=== PATIENT | female | born 1980 | race Caucasian/White ===

== ENCOUNTER 2019-06-30 06:02 | Emergency (ER) | payer OTHER, SELFPAY ==
--- NOTE | ~2019-06-30 | US_ITS ---
EXAMINATION: US right upper quadrant DATE: 06/30/2019 07:44 INDICATION: Right upper quadrant pain TECHNIQUE: Multiple grayscale and Doppler ultrasound images of the abdomen were obtained. COMPARISON: None available FINDINGS: The head and and body of the pancreas are normal. The pancreatic tail is obscured by bowel gas. The liver is normal with normal echogenicity and echotexture. No surface nodularity. Normal hepa topetal flow in the main portal vein. The gallbladder is normal with no abnormal wall thickening, per icholecystic fluid or stones. The normal common bile duct measures 4 mm. There was no sonographic Mur phy sign. IMPRESSION: 1. Normal sonographic study of the gallbladder. Reviewed, dictated and finalized at location A.
--- NOTE | ~2019-06-30 | CT_ITS ---
EXAMINATION: CT abdomen pelvis w con INDICATION: Right upper quadrant pain and nausea TECHNIQUE: Computed tomographic images of the abdomen and pelvis were obtained after the administrati on of 100 cc of Omnipaque 350 intravenous contrast. The dose-length product (DLP) was 379.13 mGy-cm. Automated exposure control and iterative reconstruction technique were employed. COMPARISON: None available FINDINGS: Minimal dependent atelectasis is present in the lung bases. The heart size is normal. The l iver, spleen, pancreas, gallbladder, and adrenal glands are normal. The kidneys are unremarkable. No pathologically enlarged abdominal or pelvic lymph nodes are identified. There is no free intraperiton eal gas or evidence of bowel obstruction. There is a small fat-containing umbilical hernia. The appen xiomara measures up to 9 mm in some portions but is thin-walled and gas containing. The urinary bladder i s distended. IMPRESSION: 1. No CT correlate for the patient's symptoms. Reviewed, dictated and finalized at location A.
[2019-06-30 06:07] VITALS: BP 136/95; PULSE 72; RESP 17; TEMP 36.5; O2SAT 100
--- NOTE | 2019-06-30 06:09 | ED.ABDPAIN ---
HPI - Abdominal Pain General Chief Complaint: Abdominal Pain <Rene Anders MD - Last Filed: 06/30/19 06:47> Stated Complaint: Abdominal pain <Rene Anders MD - Last Filed: 06/30/19 06:47> Time Seen by Provider: 06/30/19 06:08 <Rene Anders MD - Last Filed: 06/30/19 06:47> History of Present Illness HPI narrative: Patient is a 38-year-old female who presents ER with right upper quadrant abdominal pain. Reports it is been intermittent over the last couple of days. Worse with eating. It is now radiating to her right back. Symptoms began an hour prior to arrival and awoke her from sleep. Mild nausea but no vomiting. Denies fevers or chills or sweats. Has never been evaluated for similar symptoms. She has not found any alleviating factors. <Rene Anders MD - Last Filed: 06/30/19 06:47> Related Data Home Medications: Home Medications Medication Instructions Recorded Confirmed escitalopram oxalate [Lexapro] 10 mg PO DAILY 02/17/19 02/17/19 <Rene Anders MD - Last Filed: 06/30/19 06:47> Allergies/Adverse Reactions: Allergies Allergy/AdvReac Type Severity Reaction Status Date / Time propoxyphene Allergy Unknown NAUSEA AND Verified 03/04/16 14:10 VOMITING DHA Allergy Mild RASH Uncoded 09/18/13 13:35 NUTS Allergy Unknown SWELLING Uncoded 08/05/09 08:09 <Rene Anders MD - Last Filed: 06/30/19 06:47> Review of Systems Review of Systems: All systems reviewed & are unremarkable except as noted in HPI and below <Rene Anders MD - Last Filed: 06/30/19 06:47> Constitutional: Constitutional: Denies chills, Denies fever(s) and Denies weakness <Rene Anders MD - Last Filed: 06/30/19 06:47> ENT: Denies nasal congestion and Denies sore throat <Rene Anders MD - Last Filed: 06/30/19 06:47> Cardiovascular: Cardiovascular: Denies chest pain and Denies rapid heart rate <Rene Anders MD - Last Filed: 06/30/19 06:47> Respiratory: Respiratory: Denies cough and Denies dyspnea <Rene Anders MD - Last Filed: 06/30/19 06:47> Gastrointestinal: Gastrointestinal: Reports abdominal pain, Denies diarrhea, Reports nausea and Denies vomiting <Rene Anders MD - Last Filed: 06/30/19 06:47> Genitourinary: Genitourinary: Denies nocturia and Denies dysuria <Rene Anders MD - Last Filed: 06/30/19 06:47> PMFSH Past Medical History Medical History: Medical History (Updated 06/30/19 @ 07:14 by Ana Magaña MD) Anxiety Non-Hodgkin lymphoma <Rene Anders MD - Last Filed: 06/30/19 06:47> Surgical History Surgical History: Surgical History (Updated 06/30/19 @ 06:47 by Rene Anders MD) History of removal of Port-a-Cath <Rene Anders MD - Last Filed: 06/30/19 06:47> Social History Social History: Social History Social History: used to smoke 1pack for 13years Smoking status: Former smoker Second hand tobacco smoke exposure: No Alcohol intake: never Gender identity (if verbalized by the patient): Female <Rene Anders MD - Last Filed: 06/30/19 06:47> Exam Narrative: Exam Narrative: GENERAL: Uncomfortable-appearing, well-nourished, and in no acute distress. HEAD: Normocephalic, atraumatic. ENT: Mucous membranes moist. CHEST: Clear to auscultation. No respiratory distress. HEART: Regular rate and rhythm. Normal peripheral pulses. ABDOMEN: Soft, moderate tenderness palpation right upper quadrant with guarding, positive Baeza's, nondistended, normal active bowel sounds. EXTREMITIES: Normal range of motion. No edema. SKIN: Warm, dry, no rash. NEURO: Alert and oriented x3. <Rene Anders MD - Last Filed: 06/30/19 06:47> Course Reevaluation(s) Reevaluation #1: Assumed care at 7:13 AM. Ms. Mondragon is an 9 out of 10 pain, right upper quadrant, for 5 days now. No known gallbladder disease. She arzola
[2019-06-30 06:30] LABS: Basophils Absolute Auto 0.1 K/mm3 (0.0-0.1); Basophils Percent Auto 0.6 % (0.2-1.2); Eosinophils Absolute Auto 0.3 K/mm3 (0-0.3); Eosinophils Percent Auto 2.7 % (0-4.4); Hematocrit 44.1 % (37.0-47.0); Immature Granulocyte Absolute 0.03 K/mm3 (0.00-0.031); Immature Granulocyte Percent A 0.3 % (0-0.5); Lymphocytes Absolute Auto 4.86 K/mm3 (0.9-3.2); Mean Corpuscular Hemoglobin 30.8 pg (26-34); Mean Corpuscular Volume 90.6 fl (80-100); Mean Platelet Volume 9.4 fl (7.4-10.4); Monocytes Absolute Auto 0.6 K/mm3 (0.1-0.6); Monocytes Percent Auto 5.6 % (2.6-8.5); Neutrophils Absolute Auto 4.7 K/mm3 (1.3-6.7); Neutrophils Percent Auto 44.8 % (45.5-73.1); Platelet Count Result 306 k/mm3 (150-375); Red Blood Count 4.87 M/mm3 (4.2-5.4); Red Cell Distribution Width 12.3 % (11.5-14.5); White Blood Count 10.6 K/mm3 (4.5-10.0)
[2019-06-30 06:35] LABS: Add Urine Microscopic? NO; Appearance Urine Clear (Clear); Bilirubin Urine Negative (Negative); Blood Urine Negative (Negative); Color Urine Straw (Yellow); Glucose Urine UA Negative (Negative); Ketones Urine Negative (Negative); Leukocyte Esterase Ur Negative LEU/UL (Negative); Nitrate Urine Negative (Negative); Protein Urine Negative (Negative); Specific Grav Ur 1.013 (1.001-1.035); Urobilinogen Urine Negative mg/dL (<2.0)
[2019-06-30 06:44] LABS: Alanine Aminotransferase 14 U/L (4-35); Albumin Level 3.8 g/dL (3.5-5.1); Alkaline Phosphatase 104 U/L (38-126); Aspartate Amino Transferase 20 U/L (14-36); Bilirubin,Total 0.2 mg/dL (0.2-1.3); Blood Urea Nitrogen 13 mg/dL (7-17); Calcium 8.4 mg/dL (8.4-10.2); Carbon Dioxide 23 mmol/L (22-30); Chloride 109 mmol/L (98-107); Estimated Glomerular Filt Rate > 60; Glucose 104 mg/dL (65-105); Lipase 94 U/L (23-300); Potassium 4.6 mmol/L (3.4-5.0); Sodium 138 mmol/L (137-145)
[2019-06-30 07:00] VITALS: BP 122/78; PULSE 72; RESP 16; O2SAT 99
[2019-06-30] MEDS: SODIUM CHLORIDE 0.9% IV 1,000 ML 999 ML IV CONT (07:28)
[2019-06-30] MEDS: MORPHINE SULFATE 4 MG/ML INJ IV PUSH ×2 (07:29→08:50)
[2019-06-30] MEDS: ONDANSETRON INJ 4 MG/2 ML VIAL IV PUSH (07:29)
[2019-06-30 08:00] VITALS: BP 125/80; PULSE 66; RESP 16; O2SAT 100
[2019-06-30 09:00] VITALS: BP 137/89; PULSE 64; RESP 16; O2SAT 99
[2019-06-30 09:45] VITALS: BP 126/85; PULSE 62; RESP 16; O2SAT 99
== END 2019-06-30 09:45 | disposition home or self-care (01) ==
PROVIDERS: Emergency Medicine; Emergency Provider Emergency Medicine; PCP Family Medicine
DX: R10.11 Right upper quadrant pain (principal); F41.9 Anxiety disorder, unspecified; Z87.891 Personal history of nicotine dependence; Z85.72 Personal history of non-Hodgkin lymphomas
CPT/HCPCS: 36415; 74177; 76705; 80053; 81003; 81025; 83690; 85025; 96361; 96374; 96375; 96376; 99284; J2270; J2405; J7030; Q9967

== ENCOUNTER 2019-07-02 11:37 | Outpatient (CLI) | payer OTHER, SELFPAY ==
[2019-07-02 12:04] LABS: Hematocrit 42.4 % (37.0-47.0); Hemoglobin 14.7 g/dL (12.0-15.0); Mean Corpuscular HGB Conc 34.7 g/dl (32-36); Mean Corpuscular Hemoglobin 30.9 pg (26-34); Mean Corpuscular Volume 89.3 fl (80-100); Mean Platelet Volume 9.2 fl (7.4-10.4); Platelet Count Result 314 k/mm3 (150-375); Red Blood Count 4.75 M/mm3 (4.2-5.4); Red Cell Distribution Width 12.1 % (11.5-14.5); White Blood Count 10.5 K/mm3 (4.5-10.0)
== END 2019-07-02 11:38 | disposition home or self-care (01) ==
LOC: ANHLAB 11:38
PROVIDERS: PCP Family Medicine; Visit Provider Family Medicine
DX: R10.9 Unspecified abdominal pain (principal)
CPT/HCPCS: 36415; 85027

== ENCOUNTER 2019-08-18 06:26 | Outpatient (CLI) | payer OTHER, SELFPAY ==
[2019-08-18 17:27] LABS: SARS-CoV-2 RNA PCR Negative
== END 2019-08-18 06:27 | disposition home or self-care (01) ==
LOC: ANHCOVIDDT 06:26
PROVIDERS: PCP Family Medicine; Visit Provider Internal Medicine Gastroenterology
DX: Z01.812 Encounter for preprocedural laboratory examination (principal); Z11.59 Encounter for screening for other viral diseases
CPT/HCPCS: 87635; C9803; U0003

== ENCOUNTER 2019-08-21 02:34 | Day surgery (SDC) | payer OTHER, SELFPAY ==
[2019-08-14 14:15] VITALS: BMI 25.7
[2019-08-21 08:18] VITALS: BP 108/73; PULSE 60; RESP 16; TEMP 36.7; O2SAT 98
[2019-08-21] MEDS: LACTATED RINGERS 1,000 ML 150 ML IV CONT (08:27)
--- NOTE | 2019-08-21 08:55 | P.PNAN_ITS ---
Anes - Initial Pre Proc Eval Procedure: Operation Date: 08/21/19 09:30 Proposed Procedures p Esophagogastroduodenoscopy - Kane Montes MD Date/Time: 08/21/19 08:55 Surgeon: Kane Montes MD Pre Op Diagnosis: RUQ Pain Patient Data Age: 39 Gender: F Height: 5 ft 3 in Weight: 63.5 kg Last Vital Signs Temp 98.0 F 08/21/19 08:18 Pulse 60 08/21/19 08:18 Resp 16 08/21/19 08:18 BP 108/73 08/21/19 08:18 Pulse Ox 98 08/21/19 08:18 Allergies Allergy/AdvReac Type Severity Reaction Status Date / Time propoxyphene Allergy Unknown NAUSEA AND Verified 08/21/19 08:20 VOMITING DHA Allergy Mild RASH Uncoded 09/18/13 13:35 NUTS Allergy Unknown SWELLING Uncoded 08/21/19 08:20 Home Medications Medication Instructions Recorded Confirmed Type alprazolam 0.25 mg tablet See Rx Instructions PO TID PRN #90 07/27/19 08/21/19 Rx tablet escitalopram oxalate 10 mg tablet 10 mg PO DAILY #30 tablet 07/30/19 08/21/19 Rx cetirizine [Zyrtec] 10 mg PO DAILY 08/14/19 08/21/19 History Patient hx anesthesia problems: none Family hx anesthesia problems: none [facility] Social History Social History Social History: used to smoke 1pack for 13years Smoking status: Former smoker Second hand tobacco smoke exposure: No Alcohol intake: never Gender identity (if verbalized by the patient): Female Anes - Eval Final PreProcedure Day of Procedure 08/21/19 08:55 Patient weight: normal Heart: regular rate and rhythm Lungs: clear to auscultation Airway: Mallampati scale class II Neurological: alert and oriented Last oral intake: >/= 8 hours ASA classification: II Emergent: no Anesthetic plan: proceed Anesthesia type and monitoring: general GIVS and standard monitoring Informed Consent: The patient's anesthetic plan and its attendant risks and benefits were discussed with the patient/family/POA. Questions were solicited and answers provided to the satisfaction of the patient/family/POA.
--- NOTE | 2019-08-21 09:27 | PM.HPGS ---
History of Present Illness History of Present Illness Consent: Risks, benefits, and alternatives have been discussed and questions answered. Patient agrees to proceed with procedure. Chief complaint: RUQ Pain Narrative: Isa Mondragon is a 39 year old female with ruq pain and nausea, imaging negative but symptoms almost gone after she took protonix which she is not longer using. Review of Systems Constitutional: Constitutional: Denies headache(s) and Denies weakness Eyes: Eyes: Denies blurry vision ENT: Reports Normal hearing present, Denies headache(s) and Denies neck pain Cardiovascular: Cardiovascular: Denies chest pain and Denies dyspnea Respiratory: Respiratory: Denies dyspnea Gastrointestinal: Gastrointestinal: Reports no additional gastrointestinal complaints Genitourinary: Genitourinary: Denies dysuria Musculoskeletal: Musculoskeletal: Denies neck pain Integumentary/Breasts: Skin/Breast: Denies dry skin Neurologic: Reports Normal hearing present, Denies headache(s) and Denies weakness Psychiatric: Psychiatric: Denies anxiety Endocrine: Endocrine: Denies change in body appearance Hematologic/Lymphatic: Hematologic/Lymphatic: Denies easy bleeding Allergic/Immunologic: Allergic/Immunologic: Denies urticaria PMF Social History Social History Social History: used to smoke 1pack for 13years Smoking status: Former smoker Second hand tobacco smoke exposure: No Alcohol intake: never Gender identity (if verbalized by the patient): Female Meds Home Medications and Allergies Home Medications Medication Instructions Recorded Confirmed Type alprazolam 0.25 mg tablet See Rx Instructions PO TID PRN #90 07/27/19 08/21/19 Rx tablet escitalopram oxalate 10 mg tablet 10 mg PO DAILY #30 tablet 07/30/19 08/21/19 Rx cetirizine [Zyrtec] 10 mg PO DAILY 08/14/19 08/21/19 History Allergies Allergy/AdvReac Type Severity Reaction Status Date / Time propoxyphene Allergy Unknown NAUSEA AND Verified 08/21/19 08:20 VOMITING DHA Allergy Mild RASH Uncoded 09/18/13 13:35 NUTS Allergy Unknown SWELLING Uncoded 08/21/19 08:20 Vital Signs Vital Signs - 24 hr 08/21/19 08:18 Temperature 98.0 F Pulse Rate 60 Respiratory Rate 16 Blood Pressure 108/73 Pulse Oximetry 98 Exam Const: General: comfortable and no acute distress HENMT: General nose exam: Normal nares present Eyes: General: appearance normal, both eyes and all related structures Neck: Neck: no JVD Resp: Auscultation: clear to auscultation bilaterally Cardio: Rate: regular rate Rhythm: regular rhythm GI: Inspection: non-distended GI Palp: Yes Soft to palpation Skin: General skin exam: normal color Neuro: General: gait normal Speech: normal speech Extrem: General: normal to inspection Psych: Mental Status: mental status grossly normal Assessment and Plan Assessment and plan (1) Nausea: Code(s): R11.0 - Nausea Status: Acute Assessment and Plan: will do egd (2) RUQ pain: Code(s): R10.11 - Right upper quadrant pain Status: Acute Assessment and Plan: probably had pud, symptoms resolved after ppi
[2019-08-21 09:44] VITALS: BP 106/63; PULSE 62; RESP 20; O2SAT 99
[2019-08-21 09:54] VITALS: BP 113/74; PULSE 88; RESP 20; O2SAT 99
[2019-08-21 10:04] VITALS: BP 128/94; PULSE 66; RESP 22; O2SAT 100
== END 2019-08-21 10:20 | disposition home or self-care (01) ==
PROVIDERS: PCP Family Medicine; Visit Provider Internal Medicine Gastroenterology
PROC: 0DJ08ZZ Inspection of Upper Intestinal Tract, Via Natural or Artificial Opening Endoscopic (ICD-10-PCS; CPT 43235; principal; 2019-08-21 09:30)
DX: K29.70 Gastritis, unspecified, without bleeding (principal); Z87.891 Personal history of nicotine dependence
CPT/HCPCS: 43239; 87635; 88305; C9803; J2704; J7120; U0003

== ENCOUNTER → 2020-06-13 10:39 | Outpatient (CLI) | payer OTHER, SELFPAY ==
--- NOTE | ~2020-06-13 | MM_ITS ---
EXAMINATION: MM screening [facility] BI w ruy HISTORY: Screening mammogram TECHNIQUE: Craniocaudal and mediolateral oblique 3-D tomosynthesis images were obtained and synthetic 2-D images were generated. CAD analysis was submitted and interpreted. COMPARISON: 03/06/2019 diagnostic bilateral digital mammogram and Limited bilateral breast ultrasound 02/16/2019 bilateral digital screening mammogram BREAST PARENCHYMAL COMPOSITION: There are scattered areas of fibroglandular density. FINDINGS: Stable benign small intramammary lymph nodes, upper outer left breast. There is no evidence of suspicious mass, calcification, or architectural distortion to suggest malignancy in either breas t. There has been no suspicious interval change. IMPRESSION: 1. No mammographic evidence of malignancy. 2. Recommend routine screening mammography in one year. BI-RADS Category 2: Benign finding(s). Reviewed, dictated and finalized at location A.
== END ==
PROVIDERS: Visit Provider Nurse Practitioner Obstetrics & Gynecology
DX: Z12.31 Encounter for screening mammogram for malignant neoplasm of breast (principal)
CPT/HCPCS: 77063; 77067

== ENCOUNTER → 2021-02-20 03:32 | Outpatient (CLI) | payer OTHER, SELFPAY ==
[2021-02-20 14:17] LABS: Influenza Control Positive
[2021-02-20 22:11] LABS: SARS-CoV-2 RNA PCR Positive
== END ==
PROVIDERS: PCP Family Medicine; Visit Provider Physician Assistant
DX: R50.9 Fever, unspecified (principal); U07.1 COVID-19
CPT/HCPCS: 87804; C9803; U0003; U0005

== ENCOUNTER 2021-09-08 00:05 | Day surgery (SDC) | payer BC, SELFPAY ==
[2021-08-27 10:18] VITALS: BMI 23.8
[2021-09-08 06:17] VITALS: BP 113/73; PULSE 76; RESP 18; TEMP 36.2; O2SAT 99; BMI 24.5
[2021-09-08] MEDS: LACTATED RINGERS 1,000 ML 150 ML IV CONT (06:39)
--- NOTE | 2021-09-08 07:08 | WPDANESEPPF ---
Anes - Initial Pre Proc Eval Procedure: Operation Date: 09/08/21 07:30 Proposed Procedures p Colonoscopy - Kane Montes MD Date/Time: 09/08/21 07:08 Surgeon: Kane Montes MD Pre Op Diagnosis: abdominal pain Patient Data Age: 41 Gender: F Height: 1.57 m Weight: 61 kg Last Vital Signs Temp 36.2 C L 09/08/21 06:17 Pulse 76 09/08/21 06:17 Resp 18 09/08/21 06:17 BP 113/73 09/08/21 06:17 Pulse Ox 99 09/08/21 06:17 O2 Del Method Room Air 09/08/21 06:17 Allergies Allergy/AdvReac Type Severity Reaction Status Date / Time propoxyphene Allergy Unknown NAUSEA AND Verified 09/08/21 06:27 VOMITING DHA Allergy Mild RASH Uncoded 09/08/21 06:27 NUTS Allergy Unknown SWELLING Uncoded 09/08/21 06:27 Home Medications Medication Instructions Recorded Confirmed Type sodium sul 1.479 gram-potas ch See Rx Instructions PO PER PKG DIR 07/27/21 09/08/21 Rx 0.188 gram-magnes sul 0.225 gram #24 tabs tablet (Sutab) Lactobacillus 1 cap PO DAILY 08/27/21 09/08/21 History acidophilus-Bifidobac.animalis 2.5 billion cell capsule (Daily Probiotic) cetirizine 10 mg tablet (Zyrtec) 10 mg PO DAILY PRN Allergy Symptoms 08/27/21 09/08/21 History Patient hx anesthesia problems: none Family hx anesthesia problems: none Results Review: All pre-operative results and documents have been reviewed as part of the pre-operative evaluation. [facility] Past Medical History Medical History Anxiety Nausea Need for tetanus booster Non-Hodgkin lymphoma RUQ pain Surgical History Surgical History (Updated 09/08/21 @ 07:09 by Favian Andersen MD) History of esophagogastroduodenoscopy (EGD) History of removal of Port-a-Cath Family History Family History Other Cerebrovascular accident Family history of bipolar disorder Family history of seizure disorder Family history of type 1 diabetes mellitus Hypertension Social History Social History Social History: used to smoke 1pack for 13years Smoking status: Former smoker Tobacco type: cigarettes Second hand tobacco smoke exposure: No Alcohol intake: never Substance use: current Substance use type: marijuana Living arrangements: with family Gender identity (if verbalized by the patient): Female Spiritual care concerns: No Anes - Eval Final PreProcedure Day of Procedure 09/08/21 07:08 Patient weight: normal Heart: regular rate and rhythm Lungs: clear to auscultation Airway: Mallampati scale class II Neurological: alert and oriented Last oral intake: >/= 8 hours ASA classification: II Emergent: no Anesthetic plan: proceed Anesthesia type and monitoring: general GIVS and standard monitoring Results Review: All pre-operative results and documents have been reviewed as part of the pre-operative evaluation. Informed Consent: The patient's anesthetic plan and its attendant risks and benefits were discussed with the patient/family/POA. Questions were solicited and answers provided to the satisfaction of the patient/family/POA.
--- NOTE | 2021-09-08 07:27 | PM.HPGS ---
History of Present Illness History of Present Illness Consent: Risks, benefits, and alternatives have been discussed and questions answered. Patient agrees to proceed with procedure. Chief complaint: abdominal pain Narrative: Isa Mondragon is a 41 year old female with intermittent ruq pain and negative work up, family h/o Crohn's, never had colonoscopy. Review of Systems Constitutional: Constitutional: Denies headache(s) and Denies weakness Eyes: Eyes: Denies blurry vision ENT: Reports Normal hearing present, Denies headache(s) and Denies neck pain Cardiovascular: Cardiovascular: Denies chest pain and Denies dyspnea Respiratory: Respiratory: Denies dyspnea Gastrointestinal: Gastrointestinal: Reports no additional gastrointestinal complaints Genitourinary: Genitourinary: Denies dysuria Musculoskeletal: Musculoskeletal: Denies neck pain Integumentary/Breasts: Skin/Breast: Denies dry skin Neurologic: Reports Normal hearing present, Denies headache(s) and Denies weakness Psychiatric: Psychiatric: Denies anxiety Endocrine: Endocrine: Denies change in body appearance Hematologic/Lymphatic: Hematologic/Lymphatic: Denies easy bleeding Allergic/Immunologic: Allergic/Immunologic: Denies urticaria PMFSH Past Medical History Medical History Anxiety Nausea Need for tetanus booster Non-Hodgkin lymphoma RUQ pain Surgical History Surgical History (Updated 09/08/21 @ 07:09 by Favian Andersen MD) History of esophagogastroduodenoscopy (EGD) History of removal of Port-a-Cath Family History Family History Other Cerebrovascular accident Family history of bipolar disorder Family history of seizure disorder Family history of type 1 diabetes mellitus Hypertension Social History Social History Social History: used to smoke 1pack for 13years Smoking status: Former smoker Tobacco type: cigarettes Second hand tobacco smoke exposure: No Alcohol intake: never Substance use: current Substance use type: marijuana Living arrangements: with family Gender identity (if verbalized by the patient): Female Spiritual care concerns: No Meds Home Medications and Allergies Home Medications Medication Instructions Recorded Confirmed Type sodium sul 1.479 gram-potas ch See Rx Instructions PO PER PKG DIR 07/27/21 09/08/21 Rx 0.188 gram-magnes sul 0.225 gram #24 tabs tablet (Sutab) Lactobacillus 1 cap PO DAILY 08/27/21 09/08/21 History acidophilus-Bifidobac.animalis 2.5 billion cell capsule (Daily Probiotic) cetirizine 10 mg tablet (Zyrtec) 10 mg PO DAILY PRN Allergy Symptoms 08/27/21 09/08/21 History Allergies Allergy/AdvReac Type Severity Reaction Status Date / Time propoxyphene Allergy Unknown NAUSEA AND Verified 09/08/21 06:27 VOMITING DHA Allergy Mild RASH Uncoded 09/08/21 06:27 NUTS Allergy Unknown SWELLING Uncoded 09/08/21 06:27 Vital Signs Vital Signs - 24 hr 09/08/21 06:17 Temperature 97.2 F L Pulse Rate 76 Respiratory Rate 18 Blood Pressure 113/73 Pulse Oximetry 99 Oxygen Delivery Room Air Exam Const: General: comfortable and no acute distress HENMT: General nose exam: Normal nares present Eyes: General: appearance normal, both eyes and all related structures Neck: Neck: no JVD Resp: Auscultation: clear to auscultation bilaterally Cardio: Rate: regular rate Rhythm: regular rhythm GI: Inspection: non-distended GI Palp: Yes Soft to palpation Skin: General skin exam: normal color Neuro: General: gait normal Speech: normal speech Extrem: General: normal to inspection Psych: Mental Status: mental status grossly normal Assessment and Plan Assessment and plan (1) RUQ pain: Code(s): R10.11 - Right upper quadrant pain Status: Acute
[2021-09-08 07:43] VITALS: BP 93/56; PULSE 66; RESP 19; O2SAT 97
[2021-09-08 07:53] VITALS: BP 115/77; PULSE 78; RESP 18; O2SAT 99
[2021-09-08 08:03] VITALS: BP 125/90; PULSE 65; RESP 25; O2SAT 100
== END 2021-09-08 08:26 | disposition home or self-care (01) ==
PROVIDERS: PCP Family Medicine; Visit Provider Internal Medicine Gastroenterology
PROC: 0DJD8ZZ Inspection of Lower Intestinal Tract, Via Natural or Artificial Opening Endoscopic (ICD-10-PCS; CPT 45378; principal; 2021-09-08 07:30)
DX: Z12.11 Encounter for screening for malignant neoplasm of colon (principal); D12.5 Benign neoplasm of sigmoid colon; R10.11 Right upper quadrant pain; K57.30 Diverticulosis of large intestine without perforation or abscess without bleeding; K64.8 Other hemorrhoids; F41.9 Anxiety disorder, unspecified; C85.90 Non-Hodgkin lymphoma, unspecified, unspecified site; Z87.891 Personal history of nicotine dependence; F12.90 Cannabis use, unspecified, uncomplicated
CPT/HCPCS: 45385; 88305; J2704; J7120

== ENCOUNTER → 2021-11-02 07:19 | Outpatient (CLI) | payer BC, SELFPAY ==
--- NOTE | ~2021-11-02 | MM_ITS ---
EXAMINATION: MM screening [facility] BI w ruy HISTORY: Screening mammogram TECHNIQUE: Craniocaudal and mediolateral oblique 3-D tomosynthesis images were obtained and synthetic 2-D images were generated. CAD analysis was submitted and interpreted. COMPARISON: 06/13/2020, 03/06/2019, 02/16/2019 BREAST PARENCHYMAL COMPOSITION: There are scattered areas of fibroglandular density. FINDINGS: A stable focal asymmetry is present in the upper left breast. There is no suspicious mass, calcification, or architectural distortion to suggest malignancy in either breast. There has been no suspicious interval change. IMPRESSION: 1. No mammographic evidence of malignancy. 2. Recommend routine screening mammography in one year. BI-RADS Category 2: Benign finding(s). Reviewed, dictated and finalized at location A.
== END ==
PROVIDERS: PCP Family Medicine; Visit Provider Nurse Practitioner Obstetrics & Gynecology
DX: Z12.31 Encounter for screening mammogram for malignant neoplasm of breast (principal)
CPT/HCPCS: 77063; 77067

== ENCOUNTER 2022-05-26 02:53 | Day surgery (SDC) | payer BC, SELFPAY ==
[2022-05-10 13:53] VITALS: BMI 25.6
[2022-05-26 06:42] VITALS: BP 131/93; PULSE 59; RESP 16; TEMP 36.2; O2SAT 100; BMI 25.7
[2022-05-26] MEDS: LACTATED RINGERS 1,000 ML 150 ML IV CONT (06:47)
--- NOTE | 2022-05-26 07:20 | WPDANESEPPF ---
Anes - Initial Pre Proc Eval Procedure: Operation Date: 05/26/22 08:00 Proposed Procedures p Esophagogastroduodenoscopy - Kane Montes MD Date/Time: 05/26/22 07:20 Surgeon: Kane Montes MD Pre Op Diagnosis: GERD, dysphagia Patient Data Age: 41 Gender: F Height: 1.57 m Weight: 63.8 kg Last Vital Signs Temp 36.2 C L 05/26/22 06:42 Pulse 59 L 05/26/22 06:42 Resp 16 05/26/22 06:42 BP 131/93 H 05/26/22 06:42 Pulse Ox 100 05/26/22 06:42 O2 Del Method Room Air 05/26/22 06:42 Allergies Allergy/AdvReac Type Severity Reaction Status Date / Time propoxyphene Allergy Unknown NAUSEA AND Verified 05/26/22 06:39 VOMITING DHA Allergy Mild RASH Uncoded 05/26/22 06:39 NUTS Allergy Unknown SWELLING Uncoded 05/26/22 06:39 Home Medications Medication Instructions Recorded Confirmed Type Lactobacillus 1 cap PO DAILY 08/27/21 05/26/22 History acidophilus-Bifidobac.animalis 2.5 billion cell capsule (Daily Probiotic) cetirizine 10 mg tablet (Zyrtec) 10 mg PO DAILY 05/10/22 05/26/22 History Patient hx anesthesia problems: none Family hx anesthesia problems: none Results Review: All pre-operative results and documents have been reviewed as part of the pre-operative evaluation. [facility] Past Medical History Medical History Anxiety Nausea Need for tetanus booster Non-Hodgkin lymphoma RUQ pain Surgical History Surgical History History of esophagogastroduodenoscopy (EGD) History of removal of Port-a-Cath Family History Family History Other Cerebrovascular accident Family history of bipolar disorder Family history of seizure disorder Family history of type 1 diabetes mellitus Hypertension Social History Social History Social History: used to smoke 1pack for 13years Smoking status: Former smoker Tobacco type: cigarettes Second hand tobacco smoke exposure: No Smoking end date: 02/14/07 Alcohol intake: never Substance use: current Substance use type: marijuana Last use: Daily Lack of Transportation: No Lack of Food: Never True Current Housing: I Have Housing Concerned About Future Housing: No Difficulty Paying Gas/Electric Bills: No Difficulty Paying for Meds: No Currently Unemployed: No Education: High School Diploma/GED Difficulty w/ Childcare or Family Care: No Living arrangements: with family Gender identity (if verbalized by the patient): Female Spiritual care concerns: No Anes - Eval Final PreProcedure Day of Procedure 05/26/22 07:20 Patient weight: normal Heart: regular rate and rhythm Lungs: clear to auscultation Airway: Mallampati scale class II Neurological: alert and oriented Last oral intake: >/= 8 hours ASA classification: III Emergent: no Anesthetic plan: proceed Anesthesia type and monitoring: general GIVS and standard monitoring Results Review: All pre-operative results and documents have been reviewed as part of the pre-operative evaluation. Informed Consent: The patient's anesthetic plan and its attendant risks and benefits were discussed with the patient/family/POA. Questions were solicited and answers provided to the satisfaction of the patient/family/POA.
--- NOTE | 2022-05-26 07:47 | PM.HPGS ---
History of Present Illness History of Present Illness Consent: Risks, benefits, and alternatives have been discussed and questions answered. Patient agrees to proceed with procedure. Chief complaint: GERD, dysphagia Narrative: Isa Mondragon is a 41 year old female here for egd, about 2 months ago had severe loss of her voice volume now resolved, saw ENT and told that probably related to reflux. Review of Systems Constitutional: Constitutional: Denies headache(s) and Denies weakness Eyes: Eyes: Denies blurry vision ENT: Reports Normal hearing present, Denies headache(s) and Denies neck pain Cardiovascular: Cardiovascular: Denies chest pain and Denies dyspnea Respiratory: Respiratory: Denies dyspnea Gastrointestinal: Gastrointestinal: Reports no additional gastrointestinal complaints Genitourinary: Genitourinary: Denies dysuria Musculoskeletal: Musculoskeletal: Denies neck pain Integumentary/Breasts: Skin/Breast: Denies dry skin Neurologic: Reports Normal hearing present, Denies headache(s) and Denies weakness Psychiatric: Psychiatric: Denies anxiety Endocrine: Endocrine: Denies change in body appearance Hematologic/Lymphatic: Hematologic/Lymphatic: Denies easy bleeding Allergic/Immunologic: Allergic/Immunologic: Denies urticaria PMFSH Past Medical History Medical History Anxiety Nausea Need for tetanus booster Non-Hodgkin lymphoma RUQ pain Surgical History Surgical History History of esophagogastroduodenoscopy (EGD) History of removal of Port-a-Cath Family History Family History Other Cerebrovascular accident Family history of bipolar disorder Family history of seizure disorder Family history of type 1 diabetes mellitus Hypertension Social History Social History Social History: used to smoke 1pack for 13years Smoking status: Former smoker Tobacco type: cigarettes Second hand tobacco smoke exposure: No Smoking end date: 02/14/07 Alcohol intake: never Substance use: current Substance use type: marijuana Last use: Daily Lack of Transportation: No Lack of Food: Never True Current Housing: I Have Housing Concerned About Future Housing: No Difficulty Paying Gas/Electric Bills: No Difficulty Paying for Meds: No Currently Unemployed: No Education: High School Diploma/GED Difficulty w/ Childcare or Family Care: No Living arrangements: with family Gender identity (if verbalized by the patient): Female Spiritual care concerns: No Meds Home Medications and Allergies Home Medications Medication Instructions Recorded Confirmed Type Lactobacillus 1 cap PO DAILY 08/27/21 05/26/22 History acidophilus-Bifidobac.animalis 2.5 billion cell capsule (Daily Probiotic) cetirizine 10 mg tablet (Zyrtec) 10 mg PO DAILY 05/10/22 05/26/22 History Allergies Allergy/AdvReac Type Severity Reaction Status Date / Time propoxyphene Allergy Unknown NAUSEA AND Verified 05/26/22 06:39 VOMITING DHA Allergy Mild RASH Uncoded 05/26/22 06:39 NUTS Allergy Unknown SWELLING Uncoded 05/26/22 06:39 Vital Signs Vital Signs - 24 hr 05/26/22 06:42 Temperature 97.1 F L Pulse Rate 59 L Respiratory Rate 16 Blood Pressure 131/93 H Pulse Oximetry 100 Oxygen Delivery Room Air Exam Const: General: comfortable and no acute distress HENMT: Face/Nose/Sinus: Normal nares present Eyes: General: appearance normal, both eyes and all related structures Neck: Neck: no JVD Resp: Auscultation: clear to auscultation bilaterally Cardio: Rate: regular rate Rhythm: regular rhythm GI: Inspection: non-distended GI Palp: Yes Soft to palpation Skin: General skin exam: normal color Neuro: General: gait normal Sp
[2022-05-26 07:53] VITALS: BP 120/73; PULSE 70; RESP 24; O2SAT 100
[2022-05-26 08:04] VITALS: BP 118/73; PULSE 63; RESP 19; O2SAT 99
[2022-05-26 08:14] VITALS: BP 124/92; PULSE 91; RESP 22; O2SAT 100
== END 2022-05-26 08:27 | disposition home or self-care (01) ==
PROVIDERS: PCP Family Medicine; Visit Provider Internal Medicine Gastroenterology
PROC: 0DJ08ZZ Inspection of Upper Intestinal Tract, Via Natural or Artificial Opening Endoscopic (ICD-10-PCS; CPT 43235; principal; 2022-05-26 08:00)
DX: K21.00 Gastro-esophageal reflux disease with esophagitis, without bleeding (principal); K44.9 Diaphragmatic hernia without obstruction or gangrene; Z85.72 Personal history of non-Hodgkin lymphomas; Z87.891 Personal history of nicotine dependence; F12.90 Cannabis use, unspecified, uncomplicated
CPT/HCPCS: 43239; 88305; J2704; J7120

== ENCOUNTER → 2023-03-10 14:56 | Outpatient (CLI) | payer BC, SELFPAY ==
--- NOTE | ~2023-03-10 | MM_ITS ---
EXAMINATION: MM screening [facility] BI w ruy HISTORY: Screening mammogram TECHNIQUE: Craniocaudal and mediolateral oblique 3-D tomosynthesis images were obtained and synthetic 2-D images were generated. CAD analysis was submitted and interpreted. COMPARISON: 11/02/2021, 06/13/2020, 03/06/2019, 02/16/2019 BREAST PARENCHYMAL COMPOSITION: There are scattered areas of fibroglandular density. FINDINGS: No suspicious mass, calcification, or architectural distortion are identified in either aliya ast to suggest malignancy. There has been no suspicious interval change. IMPRESSION: 1. No mammographic evidence of malignancy. 2. Recommend routine screening mammography in one year. BI-RADS Category 1: Negative Reviewed, dictated and finalized at location A. 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
== END ==
PROVIDERS: PCP Family Medicine; Visit Provider Family Medicine
DX: Z12.31 Encounter for screening mammogram for malignant neoplasm of breast (principal)
CPT/HCPCS: 77063; 77067

== ENCOUNTER 2023-08-30 16:02 | Outpatient (CLI) | payer BC, SELFPAY ==
--- NOTE | ~2023-08-30 | US_ITS ---
Soft tissues head and neck ultrasound. History: R22.0 - Localized swelling, mass and lump, head Technique: Evaluation of the area of concern in the neck near to the angle of mandible was performed in real ricardo e. Findings/impression: Complex area with areas of hypoechoic/hyperechogenicity suggestive of lymph node measuring 0.7 x 0.8 x 0.8 cm. Very small hypoechoic area seen measuring 0.4 x 0.3 x 0.3 cm which may be a small cyst. Abscess is le ss likely. Follow-up advised. Reviewed, dictated and finalized at location A.
== END 2023-08-30 16:03 ==
LOC: MICIMG 16:02
PROVIDERS: PCP Family Medicine; Visit Provider Family Medicine
DX: R22.0 Localized swelling, mass and lump, head (principal); R22.1 Localized swelling, mass and lump, neck; Z85.72 Personal history of non-Hodgkin lymphomas
CPT/HCPCS: 76536

== ENCOUNTER 2024-03-15 07:14 | Outpatient (CLI) | payer BC, SELFPAY ==
--- NOTE | ~2024-03-15 | MM_ITS ---
EXAMINATION: MM screening [facility] BI w ruy HISTORY: Screening TECHNIQUE: Craniocaudal and mediolateral oblique 3-D tomosynthesis images were obtained and synthetic 2-D images were generated. CAD analysis was submitted and interpreted. COMPARISON: Comparison to multiple prior studies sequentially, with oldest reviewed study dated 04/2019. BREAST PARENCHYMAL COMPOSITION: Not dense: There are scattered areas of fibroglandular density. FINDINGS: Stable benign-appearing left breast masses. There is no evidence of suspicious mass, calcif ication, or architectural distortion to suggest malignancy in either breast. There has been no suspic ious interval change. IMPRESSION: 1. No mammographic evidence of malignancy. 2. Recommend routine screening mammography in one year. BI-RADS Category 2: Benign finding(s). Reviewed, dictated and finalized at location A. 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
== END 2024-03-15 07:15 | disposition home or self-care (01) ==
LOC: MICIMG 07:15
PROVIDERS: PCP Family Medicine; Visit Provider Family Medicine
DX: Z12.31 Encounter for screening mammogram for malignant neoplasm of breast (principal)
CPT/HCPCS: 77063; 77067